=== PATIENT | female | born 1980 | race Caucasian/White ===

== ENCOUNTER 2023-12-16 12:15 | Emergency (ER) | payer BC ==
[2023-12-16 14:04] LABS: BASOPHILS PERCENT AUTO 0.4 % (0.0-1.0); HEMATOCRIT 44.1 % (37.0-47.0); HEMOGLOBIN 14.8 gm/dl (12.0-16.0); IMMATURE GRAN ABSOLUTE AUTO 0.02 K/mm3 (0.00-0.05); IMMATURE GRAN PERCENT AUTO 0.2 % (0.0-0.4); LYMPHOCYTES ABSOLUTE AUTO 0.5 K/mm3 (1.0-4.8); LYMPHOCYTES PERCENT AUTO 5.4 % (24.0-44.0); MEAN CORPUSCULAR HEMOGLOBIN 27.8 pg (28.0-32.0); MEAN CORPUSCULAR HGB CONC 33.6 g/dl (32.0-36.0); MEAN CORPUSCULAR VOLUME 82.9 fl (83.0-99.0); MEAN PLATELET VOLUME 8.9 fl (9.4-12.3); MONOCYTES ABSOLUTE AUTO 0.5 K/mm3 (0.0-0.8); MONOCYTES PERCENT AUTO 5.3 % (0.0-8.0); NEUTROPHILS ABSOLUTE AUTO 7.5 K/mm3 (1.8-7.7); NEUTROPHILS PERCENT AUTO 88.7 % (41.0-71.0); PLATELET COUNT,PLT 323 K/mm3 (150-400); RED BLOOD CELL COUNT 5.32 M/mm3 (4.10-5.30); WHITE BLOOD CELL COUNT,WBC 8.46 K/mm3 (3.9-11.3)
[2023-12-16 14:25] LABS: A/G RATIO 1.1 (1-2); ALBUMIN 3.7 g/dl (3.4-5.0); ANION GAP 11.9 (5-15); BILIRUBIN TOTAL 2.6 mg/dL (0.2-1.0); BUN/CREATININE RATIO 12.2 (14-18); CREATININE 0.9 mg/dL (0.55-1.02); EST CRCL DRUG DOSING (CG) 74.02 mL/min; POTASSIUM,K 3.9 mEq/L (3.5-5.1); PROTEIN TOTAL,TP 7.2 g/dl (6.4-8.2)
[2023-12-16] MEDS: Metoclopramide 10 MG/2 ML SDV IVPUSH ONE (14:26)
[2023-12-16] MEDS: Lactated Ringers 1,000 ML IV ONE (14:26)
[2023-12-16 14:28] LABS: LACTIC ACID 0.6 mmol/L (0.4-2.0)
[2023-12-16] MEDS: Sodium Chloride 0.9% 10 ML Syringe FLUSH PRN (14:28)
[2023-12-16] MEDS: diphenhydrAMINE 50 MG/ML SDV IVPUSH ONE (14:29)
[2023-12-16] MEDS: Iopamidol 612 MG/ML 100 ML Bottle IVPUSH ONE (15:09)
[2023-12-16] MEDS: Sodium Chloride 0.9% 10 ML Syringe FLUSH ONE (15:09)
[2023-12-16] MEDS: Azithromycin 250 MG Tab PO ONE (16:14)
== END 2023-12-16 16:17 | disposition home or self-care (01) ==
LOC: JD.ED 12:15
DX: K52.9 Noninfective gastroenteritis and colitis, unspecified (principal); E80.7 Disorder of bilirubin metabolism, unspecified; R16.1 Splenomegaly, not elsewhere classified; Z79.899 Other long term (current) drug therapy
CPT/HCPCS: 36415; 74177; 80053; 83605; 83690; 85025; 96361; 96374; 96375; 99284; A9270; J1200; J2765; J3490; J7120; Q9967